=== PATIENT | male | born 1970 | race Caucasian/White ===

== ENCOUNTER 2018-11-08 14:26 | Emergency (ER) | payer SELFPAY ==
[~2018-11-08] VITALS: Ht 170.2 cm; Wt 75.0 kg
[2018-11-08 14:33] VITALS: BP 159/89
== END 2018-11-08 19:00 | disposition left against medical advice (07) ==
LOC: ER 15:24
DX: Z53.21 Procedure and treatment not carried out due to patient leaving prior to being seen by health care provider (principal)